=== PATIENT | male | born 1955 | race Caucasian/White ===

== ENCOUNTER → 2020-09-21 | Outpatient (CLI) | payer MEDICARE ==
[~2020-09-21] MED LIST: ASPIRIN81 MG PO; ATORVASTATIN CA80 MG PO; CLOPIDOGREL75 MG PO; FISH OIL 1,2001 EAC7 PO; GLUCOPHAGE 500500 MG PO; HYDROCODON-ACE1 EAC4 PO; INVANZ 1 GM VIAL1 GM IV; LEXAPRO5 MG PO; LISINOPRIL10 MG PO; METFORMIN HCL850 MG PO; METOPROLOL TART25 MG PO; NITROGLYCERIN0.4 MG SL; THERAGRAN M TAB1 EA PO; VITAMIN D350 MCG PO; ZYVOX600 MG PO
== END ==
LOC: WCC 12:47
DX: T81.30XD Disruption of wound, unspecified, subsequent encounter (principal); L97.313 Non-pressure chronic ulcer of right ankle with necrosis of muscle; L97.315 Non-pressure chronic ulcer of right ankle with muscle involvement without evidence of necrosis; E09.51 Drug or chemical induced diabetes mellitus with diabetic peripheral angiopathy without gangrene; E09.621 Drug or chemical induced diabetes mellitus with foot ulcer; I25.2 Old myocardial infarction; I25.10 Atherosclerotic heart disease of native coronary artery without angina pectoris; I10 Essential (primary) hypertension; I73.9 Peripheral vascular disease, unspecified
CPT/HCPCS: 87070; 87205

== ENCOUNTER → 2020-10-26 | Outpatient (CLI) | payer MEDICARE | LOC: WCC 13:30 | PROC: 0KBV0ZZ Excision of Right Foot Muscle, Open Approach (ICD-10-PCS; principal; 2020-10-26) | PROC: 0KBS0ZZ Excision of Right Lower Leg Muscle, Open Approach (ICD-10-PCS; 2020-10-26) | DX: E11.621 Type 2 diabetes mellitus with foot ulcer (principal); L97.315 Non-pressure chronic ulcer of right ankle with muscle involvement without evidence of necrosis; L97.515 Non-pressure chronic ulcer of other part of right foot with muscle involvement without evidence of necrosis; I25.10 Atherosclerotic heart disease of native coronary artery without angina pectoris; I10 Essential (primary) hypertension; I73.9 Peripheral vascular disease, unspecified; I63.9 Cerebral infarction, unspecified ==

== ENCOUNTER → 2020-11-02 | Outpatient (CLI) | payer MEDICARE | LOC: WCC 13:25 | PROC: 0KBS0ZZ Excision of Right Lower Leg Muscle, Open Approach (ICD-10-PCS; principal; 2020-11-02) | PROC: 0JBQ0ZZ Excision of Right Foot Subcutaneous Tissue and Fascia, Open Approach (ICD-10-PCS; 2020-11-02) | DX: E11.621 Type 2 diabetes mellitus with foot ulcer (principal); L97.512 Non-pressure chronic ulcer of other part of right foot with fat layer exposed; L97.315 Non-pressure chronic ulcer of right ankle with muscle involvement without evidence of necrosis; L97.313 Non-pressure chronic ulcer of right ankle with necrosis of muscle; I10 Essential (primary) hypertension; I25.10 Atherosclerotic heart disease of native coronary artery without angina pectoris; I73.9 Peripheral vascular disease, unspecified; I63.9 Cerebral infarction, unspecified ==

== ENCOUNTER → 2020-11-16 | Outpatient (CLI) | payer MEDICARE | LOC: WCC 13:30 | PROC: 0KBS0ZZ Excision of Right Lower Leg Muscle, Open Approach (ICD-10-PCS; principal; 2020-11-16) | DX: E11.621 Type 2 diabetes mellitus with foot ulcer (principal); L97.315 Non-pressure chronic ulcer of right ankle with muscle involvement without evidence of necrosis; I25.10 Atherosclerotic heart disease of native coronary artery without angina pectoris; I10 Essential (primary) hypertension; I73.9 Peripheral vascular disease, unspecified; I63.9 Cerebral infarction, unspecified ==

== ENCOUNTER → 2020-11-23 | Outpatient (CLI) | payer MEDICARE | LOC: WCC 13:28 | PROC: 0KBV0ZZ Excision of Right Foot Muscle, Open Approach (ICD-10-PCS; principal; 2020-11-23) | PROC: 0KBS0ZZ Excision of Right Lower Leg Muscle, Open Approach (ICD-10-PCS; 2020-11-23) | DX: L97.315 Non-pressure chronic ulcer of right ankle with muscle involvement without evidence of necrosis (principal); T81.30XA Disruption of wound, unspecified, initial encounter; I25.10 Atherosclerotic heart disease of native coronary artery without angina pectoris; I10 Essential (primary) hypertension; I73.9 Peripheral vascular disease, unspecified; E09.51 Drug or chemical induced diabetes mellitus with diabetic peripheral angiopathy without gangrene ==

== ENCOUNTER 2020-11-29 11:11 | Inpatient (IN) | payer MEDICARE ==
[~2020-11-29] VITALS: Ht 182.9 cm; Wt 89.4 kg
[~2020-11-29 11:11] MED LIST changes: -GLUCOPHAGE 500500 MG PO; -HYDROCODON-ACE1 EAC4 PO; -LISINOPRIL10 MG PO; -THERAGRAN M TAB1 EA PO; -ZYVOX600 MG PO
[2020-11-29 12:27] LABS: HEMOGLOBIN 12.3 gm/dl (14.0-17.5); RED BLOOD COUNT 4.2 M/UL (4.20-5.50); WHITE BLOOD COUNT 18.6 K/UL (4.5-11.0)
[2020-11-29 12:41] LABS: BUN/CREATININE RATIO 21 (0-10)
[2020-11-30 05:37] LABS: HEMOGLOBIN 11.8 gm/dl (14.0-17.5); RED BLOOD COUNT 4.01 M/UL (4.20-5.50)
[2020-11-30 05:57] LABS: BUN/CREATININE RATIO 23 (0-10)
[2020-12-01 04:10] LABS: HEMOGLOBIN 11.4 gm/dl (14.0-17.5); RED BLOOD COUNT 3.94 M/UL (4.20-5.50); WHITE BLOOD COUNT 10.6 K/UL (4.5-11.0)
[2020-12-01 04:57] LABS: BUN/CREATININE RATIO 14 (0-10)
[2020-12-02 03:28] LABS: HEMOGLOBIN 11.3 gm/dl (14.0-17.5); RED BLOOD COUNT 3.88 M/UL (4.20-5.50); WHITE BLOOD COUNT 10.7 K/UL (4.5-11.0)
[2020-12-02 04:00] LABS: BUN/CREATININE RATIO 9 (0-10)
[2020-12-03 03:55] LABS: HEMOGLOBIN 11.1 gm/dl (14.0-17.5); RED BLOOD COUNT 3.83 M/UL (4.20-5.50); WHITE BLOOD COUNT 8.7 K/UL (4.5-11.0)
[2020-12-03 04:29] LABS: BUN/CREATININE RATIO 9 (0-10)
[2020-12-04 01:56] LABS: HEMOGLOBIN 10.8 gm/dl (14.0-17.5); RED BLOOD COUNT 3.77 M/UL (4.20-5.50); WHITE BLOOD COUNT 10.9 K/UL (4.5-11.0)
[2020-12-04 02:30] LABS: BUN/CREATININE RATIO 10 (0-10)
[2020-12-05 09:14] LABS: RED BLOOD COUNT 3.43 M/UL (4.20-5.50); WHITE BLOOD COUNT 11.7 K/UL (4.5-11.0)
--- NOTE | 2020-12-05 09:30 | NUR ---
PATIENT CALLED OUT FOR ASSISTANCE. UPON ENTERING PATIENTS ROOM, PATIENT IS NOTED TO HAVE PULLED OFF HIS KNEE IMMOBLIZER AND WOUND DRESSING TO [facility]. PATIENTS WOUUND WAS CLEANSED AND REDRESSED AT THIS TIME AND PATIENT WAS GIVEN PAIN MEDICATION. WOUND WAS REDRESSED WITH VASELINE GAUZE, ABD PADS, SOFT WRAP AND ESTEFANÍA BANDAGE. PATIENT TOLERATED WELL. NO S/S OF INFECTION AT WOUND SITE.
[2020-12-05 09:32] LABS: BUN/CREATININE RATIO 7 (0-10)
[2020-12-06 05:36] LABS: HEMOGLOBIN 10.3 gm/dl (14.0-17.5); RED BLOOD COUNT 3.58 M/UL (4.20-5.50); WHITE BLOOD COUNT 11.5 K/UL (4.5-11.0)
[2020-12-06 06:01] LABS: BUN/CREATININE RATIO 14 (0-10)
[2020-12-07 06:19] LABS: HEMOGLOBIN 9.9 gm/dl (14.0-17.5); RED BLOOD COUNT 3.48 M/UL (4.20-5.50); WHITE BLOOD COUNT 9.3 K/UL (4.5-11.0)
[2020-12-07 06:38] LABS: BUN/CREATININE RATIO 12 (0-10)
--- NOTE | 2020-12-07 07:07 | NUR ---
PATIENT CALLED OUT FOR PAIN MEDS . INFORMED PATIENT NO MEDICATION DUE AT THIS TIME.
[2020-12-08 05:58] LABS: HEMOGLOBIN 10.4 gm/dl (14.0-17.5); RED BLOOD COUNT 3.64 M/UL (4.20-5.50); WHITE BLOOD COUNT 8.7 K/UL (4.5-11.0)
[2020-12-08 06:29] LABS: BUN/CREATININE RATIO 15 (0-10)
[2020-12-09 06:43] LABS: BUN/CREATININE RATIO 12 (0-10)
[2020-12-09] MEDS ORDERED: THERAGRAN M TAB1 EA PO (08:54)
[2020-12-09] MEDS ORDERED: HYDROCODON-ACE1 EAC4 PO (08:54)
[2020-12-09] MEDS ORDERED: ZYVOX600 MG PO (09:18)
[2020-12-09] MEDS ORDERED: GLUCOPHAGE 500500 MG PO (09:23)
[2020-12-09] MEDS ORDERED: LISINOPRIL10 MG PO (09:23)
[2020-12-10 05:49] LABS: BUN/CREATININE RATIO 12 (0-10)
[2020-12-12 04:51] LABS: HEMOGLOBIN 9.5 gm/dl (14.0-17.5); RED BLOOD COUNT 3.4 M/UL (4.20-5.50); WHITE BLOOD COUNT 8.3 K/UL (4.5-11.0)
[2020-12-12 05:18] LABS: BUN/CREATININE RATIO 17 (0-10)
[2020-12-14 05:41] LABS: BUN/CREATININE RATIO 13 (0-10)
--- NOTE | 2020-12-14 18:28 | NUR ---
ATTEMPTED TO GIVE PT LACTOLOSE AND GLYCERIN SUPPOSITORY PT REFUSED STATED THAT WHEN HE GETS HOME THAT HE WILL HAVE A BOWEL MOVEMENT THAT HES A PRIVATE PERSON AND DONT WANT TO HAVE AN ACCIDENT IN THE BED OR BE DRUG TO THE BATHROOM
== END 2020-12-15 19:16 | DRG 853 ==
LOC: ER1 11:11 → MED SURG 4 18:35 → CDU 18:35 → MED SURG 4 18:36
PROVIDERS: Internal Medicine; Physician Assistant; Surgery; ADMIT Internal Medicine
PROC: 0KBV0ZZ Excision of Right Foot Muscle, Open Approach (ICD-10-PCS; 2020-12-01)
PROC: 0QBN0ZX Excision of Right Metatarsal, Open Approach, Diagnostic (ICD-10-PCS; principal; 2020-12-01 15:45)
PROC: 0KU Muscles, Supplement (ICD-10-PCS; 2020-12-01 15:45)
PROC: 0Y6H0Z2 Detachment at Right Lower Leg, Mid, Open Approach (ICD-10-PCS; 2020-12-03)
PROC: 0QR Lower Bones, Replacement (ICD-10-PCS; 2020-12-03)
DX: A41.02 Sepsis due to Methicillin resistant Staphylococcus aureus (principal); M72.6 Necrotizing fasciitis; L03.115 Cellulitis of right lower limb; E11.52 Type 2 diabetes mellitus with diabetic peripheral angiopathy with gangrene; I96 Gangrene, not elsewhere classified; L97.515 Non-pressure chronic ulcer of other part of right foot with muscle involvement without evidence of necrosis; M86.171 Other acute osteomyelitis, right ankle and foot; I69.354 Hemiplegia and hemiparesis following cerebral infarction affecting left non-dominant side; E11.69 Type 2 diabetes mellitus with other specified complication; E83.51 Hypocalcemia; E11.621 Type 2 diabetes mellitus with foot ulcer; E11.628 Type 2 diabetes mellitus with other skin complications; R65.20 Severe sepsis without septic shock; Z20.822 Contact with and (suspected) exposure to COVID-19; D72.829 Elevated white blood cell count, unspecified; F03.90 Unspecified dementia, unspecified severity, without behavioral disturbance, psychotic disturbance, mood disturbance, and anxiety; E87.6 Hypokalemia; I25.10 Atherosclerotic heart disease of native coronary artery without angina pectoris; I48.0 Paroxysmal atrial fibrillation; Z95.1 Presence of aortocoronary bypass graft; Z90.49 Acquired absence of other specified parts of digestive tract; Z88.1 Allergy status to other antibiotic agents; Z79.82 Long term (current) use of aspirin; Z79.01 Long term (current) use of anticoagulants; Z79.899 Other long term (current) drug therapy; Z28.21 Immunization not carried out because of patient refusal
CPT/HCPCS: 36415; 71045; 73610; 73630; 73701; 80048; 80053; 80202; 82962; 83605; 85025; 85027; 85652; 86140; 87040; 87070; 87077; 87186; 87205; 93005; 96365; 96366; 96372; 96375; 97110; 97110-GP-CQ; 97163; 97167; 97530; 97530-GP-CQ; 97535; 99284; J0690; J0696; J1170; J1335; J1580; J1650; J1885; J2001; J2185; J2250; J2405; J2704; J3010; J3370; J3480; J7030; J7070; J7120; Q4133; Q9967; U0002

== ENCOUNTER → 2021-02-22 | Outpatient (CLI) | payer MEDICARE ==
[~2021-02-22] MED LIST changes: +GLUCOPHAGE 500500 MG PO; +HYDROCODON-ACE1 EAC4 PO; +LISINOPRIL10 MG PO; +THERAGRAN M TAB1 EA PO; +ZYVOX600 MG PO
== END ==
LOC: WCC 14:13
DX: E11.622 Type 2 diabetes mellitus with other skin ulcer (principal); T81.31XA Disruption of external operation (surgical) wound, not elsewhere classified, initial encounter; I25.10 Atherosclerotic heart disease of native coronary artery without angina pectoris; I10 Essential (primary) hypertension; I63.9 Cerebral infarction, unspecified; I73.9 Peripheral vascular disease, unspecified; Z89.511 Acquired absence of right leg below knee
CPT/HCPCS: G0463

== ENCOUNTER → 2021-03-08 | Outpatient (CLI) | payer MEDICARE | LOC: WCC 14:30 | DX: T81.31XA Disruption of external operation (surgical) wound, not elsewhere classified, initial encounter (principal); E11.9 Type 2 diabetes mellitus without complications ==